=== PATIENT | male | born 1980 | race Caucasian/White ===

== ENCOUNTER 2018-02-10 16:04 | Emergency (ER) | payer OTHER ==
[~2018-02-10] VITALS: Ht 162.6 cm; Wt 87.1 kg
[2018-02-10 16:13] VITALS: BP 126/83
[2018-02-10] MEDS ORDERED: TDAP [DIPH/PERTUSSIS/TET] 0.5 ML VIAL IM ONE ×2 (16:17→16:30)
[2018-02-10] MEDS ORDERED: ACETAMINOPHEN ES 500 MG TABLET ONE (16:17)
[2018-02-10] MEDS ORDERED: HYDROCODONE/APAP 5/325MG 1 EACH TABLET ONE (16:24)
[2018-02-10] MEDS ORDERED: ACETAMINOPHEN 325 MG TABLET PO ONE ×2 (16:30)
[2018-02-10] MEDS ORDERED: HYDROCODONE/APAP 5/325MG 1 EACH TABLET PO ONE (16:30)
== END 2018-02-10 16:55 | disposition home or self-care (01) ==
LOC: ER 16:10
DX: S61.012A Laceration without foreign body of left thumb without damage to nail, initial encounter (principal); W26.0XXA Contact with knife, initial encounter; Y93.89 Activity, other specified; Y92.099 Unspecified place in other non-institutional residence as the place of occurrence of the external cause; Y99.8 Other external cause status
CPT/HCPCS: 12001; 90471; 90715; 99283; A4606; Z7610; A6402